=== PATIENT | female | born 1935 | race Caucasian/White ===

== ENCOUNTER 2021-06-04 18:42 | Observation (INO) | payer MEDICARE, MEDICAID ==
[~2021-06-04] VITALS: Ht 154.9 cm; Wt 73.5 kg
[~2021-06-04 18:42] MED LIST: ADULT LOW DOSE81 MG PO; ASPIR 8181 MG PO; COREG 25MG TAB25 MG PO; ESTRADIOL0.5 MG PO; FLECAINIDE ACE100 MG PO; KLONOPIN TAB 00.5 MG PO; LASIX TAB 20 MG20 MG PO; LOSARTAN POTAS100 MG PO; MEDROL4 MG PO; MULTAQ 400 MG400 MG PO; TRAMADOL HCL50 MG PO; XOPENEX1.25 MG/3 INH
[2021-06-04 20:20] LABS: HEMOGLOBIN 12.1 gm/dl (12.3-15.3)
[2021-06-04 21:09] LABS: BUN/CREATININE RATIO 16 (0-10)
[2021-06-05 02:53] LABS: BORDETELLA PARAPERTUSSIS Not Detected (Not Detectd); BORDETELLA PERTUSSIS Not Detected (Not Detectd); CHLAMYDIA PNEUMONIAE Not Detected (Not Detectd); CORONAVIRUS HKU1 Not Detected (Not Detectd); CORONAVIRUS NL63 Not Detected (Not Detectd); CORONAVIRUS OC43 Not Detected (Not Detectd); CORONOAVIRUS 229E Not Detected (Not Detectd); HUMAN METAPNEUMOVIRUS Not Detected (Not Detectd); HUMAN RHINOVIRUS/ENTEROVIRUS Not Detected (Not Detectd); INFLUENZA A Not Detected (Not Detectd); INFLUENZA B Not Detected (Not Detectd); MYCOPLASMA PNEUMONIAE Not Detected (Not Detectd); PARAINFLUENZA VIRUS 1 Not Detected (Not Detectd); PARAINFLUENZA VIRUS 2 Not Detected (Not Detectd); PARAINFLUENZA VIRUS 3 Not Detected (Not Detectd); PARAINFLUENZA VIRUS 4 Not Detected (Not Detectd); RESPIRATORY SYNCYTIAL VIRUS Not Detected (Not Detectd)
[2021-06-05] MEDS ORDERED: VISTARIL25 MG PO (03:53)
[2021-06-05 04:14] LABS: SARS-CoV-2 NOT DETECTED (Not Detectd)
[2021-06-05] MEDS ORDERED: SOTALOL160 MG PO (10:35)
[2021-06-05] MEDS ORDERED: HYDROXYZINE PAM25 MG PO (16:37)
[2021-06-05] MEDS ORDERED: WARFARIN SODIUM3 MG PO ×2 (16:41→19:10)
[2021-06-05] MEDS ORDERED: CHOLESTYRAMINE L4 GM PO (16:42)
[2021-06-05] MEDS ORDERED: DRISDOL1250 MCG PO (16:43)
[2021-06-06] MEDS ORDERED: AMLODIPINE BESYL5 MG PO (12:38)
[2021-06-06] MEDS ORDERED: LASIX20 MG PO (12:38)
== END 2021-06-06 13:32 | disposition home or self-care (01) ==
LOC: ER1 18:42 → CDU 06-05 04:58 → MED SURG 4 06-05 19:15
PROVIDERS: Family Medicine; ADMIT Internal Medicine
DX: I11.0 Hypertensive heart disease with heart failure (principal); I50.33 Acute on chronic diastolic (congestive) heart failure; I16.0 Hypertensive urgency; Z79.01 Long term (current) use of anticoagulants; F41.9 Anxiety disorder, unspecified; Z90.49 Acquired absence of other specified parts of digestive tract; Z90.710 Acquired absence of both cervix and uterus; Z20.822 Contact with and (suspected) exposure to COVID-19; I48.20 Chronic atrial fibrillation, unspecified; Z79.82 Long term (current) use of aspirin; K44.9 Diaphragmatic hernia without obstruction or gangrene; J90 Pleural effusion, not elsewhere classified; I08.3 Combined rheumatic disorders of mitral, aortic and tricuspid valves
CPT/HCPCS: ECHO; 71045; 71275; 80053; 82550; 82553; 83874; 83880; 84439; 84443; 84484; 85025; 85379; 85610; 86140; 87633; 93005; 93306; 96374; 96375; 96376; 99285; G0378; J0360; J1940; Q9967

== ENCOUNTER → 2021-06-29 | Outpatient (CLI) | payer MEDICARE ==
[~2021-06-29] MED LIST changes: +AMLODIPINE BESYL5 MG PO; +CHOLESTYRAMINE L4 GM PO; +DRISDOL1250 MCG PO; +HYDROXYZINE PAM25 MG PO; +LASIX20 MG PO; +SOTALOL160 MG PO; +VISTARIL25 MG PO; +WARFARIN SODIUM3 MG PO
== END ==
LOC: HEART 5 06-23 14:30
DX: I48.91 Unspecified atrial fibrillation (principal); R00.2 Palpitations

== ENCOUNTER 2021-08-04 14:22 | Observation (INO) | payer MEDICARE ==
[~2021-08-04] VITALS: Ht 154.9 cm; Wt 71.2 kg
[~2021-08-04 14:22] MED LIST changes: -CHOLESTYRAMINE L4 GM PO; +CHOLESTYRAMINE P4 GM PO
[2021-08-04 15:31] LABS: HEMOGLOBIN 12.1 gm/dl (12.3-15.3); RED BLOOD COUNT 4.04 M/UL (4.00-5.10); WHITE BLOOD COUNT 6.2 K/UL (4.5-11.0)
[2021-08-04 16:05] LABS: BUN/CREATININE RATIO 14 (0-10)
[2021-08-05] MEDS ORDERED: NEXIUM20 MG PO (10:13)
[2021-08-05] MEDS ORDERED: SOTALOL160 MG PO (10:14)
[2021-08-05] MEDS ORDERED: CARVEDILOL25 MG PO (15:02)
== END 2021-08-05 15:35 | disposition home or self-care (01) ==
LOC: ER1 14:22 → CDU 08-05 01:12
PROVIDERS: Physician Assistant; ADMIT Internal Medicine
DX: I16.0 Hypertensive urgency (principal); I11.9 Hypertensive heart disease without heart failure; I48.0 Paroxysmal atrial fibrillation; F41.9 Anxiety disorder, unspecified; M54.2 Cervicalgia; Z79.82 Long term (current) use of aspirin; Z20.822 Contact with and (suspected) exposure to COVID-19; Z79.01 Long term (current) use of anticoagulants; Z82.49 Family history of ischemic heart disease and other diseases of the circulatory system
CPT/HCPCS: 71045; 72125; 80053; 80061; 82550; 82553; 82607; 83036; 83874; 83880; 84439; 84443; 84484; 85025; 85610; 85730; 90471; 93005; 96374; 96375; 99285; G0378; U0002

== ENCOUNTER 2021-10-10 20:47 | Observation (INO) | payer MEDICARE ==
[~2021-10-10] VITALS: Ht 154.9 cm; Wt 69.4 kg
[~2021-10-10 20:47] MED LIST changes: +CARVEDILOL25 MG PO; +FUROSEMIDE20 MG PO; +HYDRALAZINE HCL25 MG PO; +KLOR-CON 1010 MEQ PO; +MAG-OX 400 TAB400 MG PO; +NEXIUM20 MG PO; +TYLENOL EXTRA500 MG PO
[2021-10-10 21:17] LABS: HEMOGLOBIN 12.3 gm/dl (12.3-15.3); RED BLOOD COUNT 4.08 M/UL (4.00-5.10); WHITE BLOOD COUNT 6.3 K/UL (4.5-11.0)
[2021-10-10 21:51] LABS: BUN/CREATININE RATIO 18 (0-10)
[2021-10-11] MEDS ORDERED: MAGNESIUM400 M2 PO (10:19)
[2021-10-11] MEDS ORDERED: POTASSIUM CHLO10 MEQ PO (10:21)
[2021-10-12] MEDS ORDERED: BETAPACE 80MG T80 MG PO (10:38)
[2021-10-12] MEDS ORDERED: TYLENOL 8 HOUR650 MG PO (10:38)
[2021-10-12] MEDS ORDERED: NORVASC10 MG PO (10:38)
[2021-10-12] MEDS ORDERED: SOTALOL120 MG PO (11:04)
== END 2021-10-12 14:07 | disposition home or self-care (01) ==
LOC: ER1 20:47 → M/S 10-11 06:08 → CDU 10-11 06:08 → M/S 10-11 07:35
PROVIDERS: Family Medicine; Internal Medicine Infectious Disease; ADMIT Internal Medicine
DX: I16.0 Hypertensive urgency (principal); I11.0 Hypertensive heart disease with heart failure; I50.32 Chronic diastolic (congestive) heart failure; R00.1 Bradycardia, unspecified; R51.9 Headache, unspecified; R77.8 Other specified abnormalities of plasma proteins; I48.0 Paroxysmal atrial fibrillation; Z79.01 Long term (current) use of anticoagulants; Z79.82 Long term (current) use of aspirin; Z90.49 Acquired absence of other specified parts of digestive tract; Z90.710 Acquired absence of both cervix and uterus; Z20.822 Contact with and (suspected) exposure to COVID-19
CPT/HCPCS: 36415; 70450; 71045; 80048; 80053; 82550; 82553; 84484; 85025; 85610; 93005; 96374; 96375; 99285; G0378; J0360; J2405; U0002